=== PATIENT | female | born 1950 | race Caucasian/White ===

== ENCOUNTER 2020-07-29 23:07 | Emergency (ER) | payer MEDICARE, OTHER ==
--- NOTE | 2020-07-29 23:26 | ED Physician Documentation ---
PD HPI UPPER EXT INJURY - Stated complaint Stated Complaint: L FINGER LAC - Chief complaint Chief Complaint: Laceration - History obtained from History obtained from: Patient - History of Present Illness Location: Left, Finger (index finger tip with small avulsion from knife while opening package of rolon. The bleeding does not want to stop, even after direct pressure.) Type of injury: Laceration (from knife) Where injury occurred: [place], [place] (camping at [facility]) Timing - onset: How many hours ago (1), Today Timing - details: Abrupt onset, Still present Associated symptoms: Other (ongoing bleeding from fingertip). No: Weakness, Numbness Contributing factors: No: Anticoagulated Similar symptoms before: Has not had sx before Recently seen: Not recently seen Review of Systems Neurologic: denies: Focal weakness, Numbness PD PAST MEDICAL HISTORY - Past Medical History Past Medical History: Yes Cardiovascular: Hypertension Psych: Depression - Past Surgical History Past Surgical History: Yes HEENT: Cataracts - Present Medications Home Medications: Ambulatory Orders Medication Instructions Recorded Confirmed Aspirin [Aspirin EC] 81 mg PO DAILY 07/29/20 07/29/20 FLUoxetine [PROzac] 10 mg PO DAILY 07/29/20 07/29/20 Losartan/Hydrochlorothiazide 100 mg PO DAILY 07/29/20 07/29/20 [Losartan-Hctz 100-12.5 mg Tab] - Allergies Allergies/Adverse Reactions: Allergies Allergy/AdvReac Type Severity Reaction Status Date / Time No Known Drug Allergies Allergy Verified 07/29/20 23:16 - Social History Does the pt smoke?: No Smoking Status: Never smoker Does the pt drink ETOH?: No Does the pt have substance abuse?: No - Immunizations Immunizations are current?: No - POLST Patient has POLST: No PD ED PE NORMAL - Vitals Vital signs reviewed: Yes - General General: Alert and oriented X 3, No acute distress, Well developed/nourished - Derm Derm: Normal color, Warm and dry - Extremities Extremities: Other (left fingertip with 1 cm avulsion to capillary layer. Ongoing oozing bleeding. Nailbed not involved. no FB. ) - Neuro Neuro: No motor deficit, No sensory deficit Results - Vitals Vitals: Vital Signs - 24 hr 07/29/20 07/29/20 07/30/20 23:14 23:19 00:19 Temperature 36.7 C 36.7 C 36.7 C Heart Rate 74 74 74 Respiratory 17 17 16 Rate Blood Pressure 173/77 H 173/77 H 158/72 H O2 Saturation 98 98 99 Oxygen O2 Source Room air PD MEDICAL DECISION MAKING - ED course Complexity details: considered differential (anesth locally with lido and then cautery used to stop the bleeding. Pressure dressing applied. ), d/w patient Departure - Departure Disposition: 01 Home, Self Care Clinical Impression: Fingertip avulsion Qualifiers: Encounter type: initial encounter Qualified Code(s): S61.209A - Unspecified open wound of unspecified finger without damage to nail, initial encounter Condition: Stable Record reviewed to determine appropriate education?: Yes Instructions: ED Avulsion Dermal Comments: Keep the initial bandage on for a day or so and then remove and do typical wound care of ointment and bandage. Recheck of infection. Discharge Date/Time: 07/30/20 00:24
[2020-07-30 00:20] VITALS: BP 158/72
== END 2020-07-30 00:24 | disposition home or self-care (01) ==
LOC: ED 23:07
DX: S61.211A Laceration without foreign body of left index finger without damage to nail, initial encounter (principal); W26.0XXA Contact with knife, initial encounter; Y93.89 Activity, other specified; Y92.830 Public park as the place of occurrence of the external cause; I10 Essential (primary) hypertension
CPT/HCPCS: 99282